=== PATIENT | male | born 1965 | race Caucasian/White ===

== ENCOUNTER 2019-02-07 19:01 | Inpatient (IN) | payer OTHER ==
[~2019-02-07] VITALS: Ht 180.3 cm; Wt 90.0 kg
[2019-02-07 21:41] LABS: BASOPHIL % 0.3 % (0-2); PLATELET COUNT 258 x10^3mcL (130-400); RED CELL DISTRIBUTION WIDTH 14.3 % (11.5-14.5)
[2019-02-07 21:43] LABS: CALCIUM 7.7 mg/dL (8.5-10.1); CARBON DIOXIDE 28.2 mmol/L (21-32); CHLORIDE SERUM 102 mmol/L (98-107); CREATININE SERUM 1.2 mg/dL (0.7-1.3); GFR1 > 60 mL/min; GLUCOSE SERUM 94 mg/dL (74-106); POTASSIUM SERUM 3.9 mmol/L (3.5-5.1); SODIUM SERUM 139 mmol/L (136-145)
[2019-02-07 21:48] LABS: ALKALINE PHOSPHATASE 91 U/L (46-116); ALT/SGPT 35 U/L (16-63); AST/SGOT 25 U/L (15-37); BILIRUBIN TOTAL 0.3 mg/dL (0.20-1.00); TOTAL PROTEIN, SERUM 7.8 g/dL (6.4-8.2)
[2019-02-07 21:49] LABS: ALBUMIN 3.3 g/dL (3.4-5.0)
[2019-02-07] MEDS ORDERED: ZESTRIL2.5 MG PO (23:04)
[2019-02-07] MEDS ORDERED: HUMALOG100 U/ML SC (23:04)
[2019-02-08 00:14] VITALS: BP 136/76
[2019-02-08 04:45] VITALS: BP 145/80
[2019-02-08 06:55] LABS: CALCIUM 7.3 mg/dL (8.5-10.1); CARBON DIOXIDE 29.7 mmol/L (21-32); CHLORIDE SERUM 105 mmol/L (98-107); GFR1 > 60 mL/min; GLUCOSE SERUM 83 mg/dL (74-106); MAGNESIUM 1.9 mg/dL (1.8-2.4); POTASSIUM SERUM 4.7 mmol/L (3.5-5.1); SODIUM SERUM 141 mmol/L (136-145)
[2019-02-08 07:14] VITALS: BP 120/66
[2019-02-08] MEDS ORDERED: ZITHROMAX1 GM/Packe PO (10:52)
[2019-02-08] MEDS ORDERED: ROBL PO (10:54)
[2019-02-08 11:09] LABS: BASOPHIL % 0.3 % (0-2); PLATELET COUNT 237 x10^3mcL (130-400); RED CELL DISTRIBUTION WIDTH 14.8 % (11.5-14.5)
[2019-02-08 12:00] VITALS: BP 138/74
[2019-02-08 12:09] VITALS: BP 120/66
== END 2019-02-08 16:33 | disposition home or self-care (01) | DRG 195 ==
LOC: ED 19:01 → DU 23:34
PROVIDERS: Emergency Medicine; Internal Medicine Pulmonary Disease; ADMIT Internal Medicine
DX: J18.9 Pneumonia, unspecified organism (principal); I10 Essential (primary) hypertension; E03.9 Hypothyroidism, unspecified; B34.9 Viral infection, unspecified; Z60.2 Problems related to living alone; E11.42 Type 2 diabetes mellitus with diabetic polyneuropathy; Z79.4 Long term (current) use of insulin; Z87.891 Personal history of nicotine dependence; Z90.89 Acquired absence of other organs
CPT/HCPCS: 82962; 83880; 87804; G0378; J0456; J0696; J7030; J7050; J7060

== ENCOUNTER 2020-03-11 14:13 | Inpatient (IN) | payer OTHER, SELFPAY ==
[~2020-03-11] VITALS: Ht 180.3 cm; Wt 88.9 kg
[~2020-03-11 14:13] MED LIST: HUMALOG100 U/ML SC; ROBL PO; ZESTRIL2.5 MG PO; ZITHROMAX1 GM/Packe PO
--- NOTE | 2020-03-11 14:31 | NUR ---
PT BIB GIRLFRIEND C/O COVID SYMPTOMS X2 WEEKS. PT TESTED +COVID 03/02/20. PT REPORTS CHILLS, BODY & MUSCLE ACHES, BLISS, FATIGUE, RUNNY NOSE, CONGESTION, SORE THROAT, COUGH W/ CLEAR SPUTUM, SOB, N/V/D. PT REPORTS VOMITING X1 PER DAY SINCE ONSET OF COVDI SYMPTOMS AND STS THAT HE HAD DIARRHEA X4DAYS FROM ONSET OF SYMPTOMS, BUT HAS NOT BEEN ABLE TO DEFACATE SINCE THEN. PT DENIES ANY CHANGE IN URINATION. PT STS BS 139 AT HOME AND REPORTS 10/10 BACK AND CHEST PAIN. PT REPORTS A "CHEST TIGHTNESS AND BURNING PAIN IN THE BACK AND CHEST". PT OBSERVED WHEEZING AND HAVING DIFFICULTY BREATHING STATING "THIS IS THE WORST SICKNESS I'VE EVER HAD". AAOX4, AWAITING MSE BY
--- NOTE | 2020-03-11 15:30 | NUR ---
PT NOTED WITH 02 SATURATION AT 91% ON RA. NOTIFIED CHARGE NEED FOR ROOM FOR PT.
--- NOTE | 2020-03-11 15:45 | NUR ---
PT GIRLFRIEND DAVON PAUL TO CONTACT. AT [phone]
--- NOTE | 2020-03-11 15:50 | NUR ---
PT NOTED IN ER [facility] BED 9.
--- NOTE | 2020-03-11 15:55 | NUR ---
FIRST CONTACT WITH PATIENT. PT C/O SOB AND COUGH SINCE BEING DIAGNOSED WITH COVID ON 03/02/20 PER PT. PT NOTED ON 4L VIA NC, SPO2@ 92%, INCREASED OXYGEN TO 6L VIA 6L NC. SPO2 NOW @ 95%. PT REPORTED HE WAS COLD, GAVE PT A BLANKET. PT ON FULL CM, SINUS TACHYCARDIA NOTED, WILL CONT TO MONITOR.
[2020-03-11 16:57] LABS: BASOPHIL % 0.1 % (0-2); PLATELET COUNT 295 x10^3mcL (130-400); RED CELL DISTRIBUTION WIDTH 14.1 % (11.5-14.5)
--- NOTE | 2020-03-11 16:57 | NUR ---
PT UNABLE TO GIVE URINE AT THIS TIME, URINAL LEFT AT THE BEDSIDE. MD AWARE. NO FURTHER ORDERS
[2020-03-11 17:08] LABS: CALCIUM 7.9 mg/dL (8.5-10.1); CARBON DIOXIDE 25.8 mmol/L (21-32); CHLORIDE SERUM 96 mmol/L (98-107); CREATININE SERUM 1.2 mg/dL (0.7-1.3); GFR1 > 60 mL/min; GLUCOSE SERUM 136 mg/dL (74-106); POTASSIUM SERUM 4.2 mmol/L (3.5-5.1); SODIUM SERUM 131 mmol/L (136-145)
[2020-03-11 17:12] LABS: ALBUMIN 3.1 g/dL (3.4-5.0); ALKALINE PHOSPHATASE 77 U/L (46-116); ALT/SGPT 60 U/L (16-63); AST/SGOT 60 U/L (15-37); BILIRUBIN TOTAL 0.5 mg/dL (0.20-1.00); C REACTIVE PROTEIN 11.6 mg/dL (<=0.9); LACTIC DEHYDROGENASE (LDH) 382 U/L (100-190); TOTAL PROTEIN, SERUM 7.6 g/dL (6.4-8.2)
--- NOTE | 2020-03-11 17:29 | NUR ---
PT NOTED LAYING SIDEWAYS IN ER [facility] WITH NC OFF SPO2 @88%, ENTERED ROOM, AND HAD PT SIT IN IN ER [facility] IN SEMI FOWLERS, PLACED NC BACK ON PT, SPO2 AT 95%. PT UNABLE TO URINATE. URINAL AT THE BEDSIDE. PT ON MONITOR. WILL CONT TO MONITOR. SAFETY PRECAUTIONS IN PLACE.
[2020-03-11] MEDS ORDERED: PRA10 PO (18:14)
--- NOTE | 2020-03-11 19:02 | NUR ---
REPORT GIVEN TO ELIAS COLLIER FOR CONTINUITY OF CARE
--- NOTE | 2020-03-11 19:47 | NUR ---
PATIENT ALERT AND ORIENTED X 4, REPORTS THAT HE HAD POSITIVE COVID 19 RESULT FROM LAST WEEK IN FEBRUARY, PATIENT REPORTS THAT HE IS FEELING BETTER WITH O2 AT 5LPM VIA NC, PLACED IN SIDE LYING POSITION, RESPIRATIONS EVEN AND UNLABORED, o2 SAT 98%, PATIENT REPORTS THAT HE WAS HOT AND IS NOW DIAPHORETIC. VSS, CONTINUES TO WAIT FOR ADMISSION ORDERS, WILL CONTINUE TO MONITOR.
--- NOTE | 2020-03-11 20:40 | NUR ---
ADMITTING MD IN WITH PATIENT, PATIENT GIVEN SANDWICH, RESPIRATIONS EVEN ADN UNLABORED, O2 SAT 96% WHILE EATING, SKIN WARM AND DRY. NO ACUTE DISTRESS NOTED.
[2020-03-11 21:36] LABS: T3 TOTAL 0.95 ng/mL
[2020-03-11 21:38] LABS: FREE T4 1.46 ng/dL (0.76-1.46); FREE THYROXINE INDEX 3.3 ug/dL (1.4-4.5); T4(THYROXINE) 8.9 ug/dL (4.7-13.3)
[2020-03-11 21:56] LABS: MAGNESIUM 2.2 mg/dL (1.8-2.4); PHOSPHOROUS 3.4 mg/dL (2.5-4.9)
--- NOTE | 2020-03-11 22:23 | NUR ---
PATIENT REPORTS THAT HE IS DROWSY AND WANTS TO SLEEP, RESPIRATIONS EVEN AND UNLABORED ON O2 AT 3LPLM VIA NC, O2 SAT 98%. vss, SR ON SCREEN MAKING TECHNICIAN WITH HR 79. CONTINUES TO WAIT FOR INPATIENT BED.
[2020-03-12 02:44] VITALS: BP 110/43
--- NOTE | 2020-03-12 05:31 | NUR ---
PATIENT RESTING QUIETLY, RESPIRATIONS EVEN AND UNLABORED, O2 DECREASED TO 2LPM VIA NC, O2 SAT 98%.
--- NOTE | 2020-03-12 06:48 | NUR ---
LAB STAFF REPORTS THAT NO URINE FOUND IN LAB, NO TESTING IN PROGRESS.
--- NOTE | 2020-03-12 07:21 | NUR ---
REPORT GIVEN TO AMIRA GIANG WHO WILL ASSUME CARE OF PATIENT.
--- NOTE | 2020-03-12 08:18 | NUR ---
POC BG 253
--- NOTE | 2020-03-12 08:19 | NUR ---
54 Y/O MALE PMH: DM, HTN, COVID+ ON 03/02/20 C/O SOB 11/11 GENERALIZED BACKPAIN/ACHING LIKE/CONSTANT/UNKNOWN PROVOKING/RELIEVING FACTORS. PT. IN SEMI FOWLERS, +DRY COUGH, DENIES N/V/F/C/BLISS/DIZZINESS +SOB, SPEAKING IN CLEAR FULL SENTENCES, RESPIRATIONS EVEN AND UNALBORED, SKIN COOL AND DRY, +RIZO, -AMU/TRIPODING NOTED, ON COVID PRECAUTIONS, REMAINS ON CONTINUOUS MONITOR, PENDING ADMIT.
--- NOTE | 2020-03-12 08:59 | NUR ---
PT. GIVEN BREAKFAST
--- NOTE | 2020-03-12 09:08 | NUR ---
CALLED PHARMACY FOR MEDICATIONS, PHARMACY WILL DELIVER.
[2020-03-12 12:55] LABS: UA SPECIFIC GRAVITY >=1.030 (1.005-1.035); microscopic required? YES; urine erythrocyte TRACE (NEGATIVE)
--- NOTE | 2020-03-12 12:56 | NUR ---
PT. GIVEN LUNCH, TOLERATING PO INTAKE WELL
[2020-03-12 14:13] LABS: AMPHETAMINE QUAL UR NONE DETECTED (See below)
--- NOTE | 2020-03-12 17:32 | NUR ---
PT. GIVEN DINNER
--- NOTE | 2020-03-12 19:31 | NUR ---
RECEIVED REPORT FROM RAHAT COLLIER. PT NOTED AWAKE IN [facility], NO ACUTE DISTRESS NOTED AND BREATHING EVEN AND UNLABORED. SAFETY MEASURES IN PLACE. PT DENIES ANY PAIN OR DISCOMFORT AT THIS TIME. CALL LIGHT WITHIN REACH. IV TO LEFT HAND INTACT AND PATENT. WILL CONTINUE TO MONITOR.
--- NOTE | 2020-03-12 20:22 | NUR ---
PT AWAKE IN GURNEY, NO ACUTE DISTRESS NOTED. BREATHING EVEN AND UNLABORED. PT A/O X4 AND VERBALLY RESPONSIVE, SPEAKING CLEAR AND FULL SENTENCES. SAFETY MEASURES IN PLACE. CALL LIGHT WITHIN REACH. WILL CONTINUE TO MONITOR.
--- NOTE | 2020-03-12 21:48 | NUR ---
PT RESTING IN GURNEY, NO ACUTE DISTRESS NOTED. BREATHING EVEN AND UNLABORED. CURTAIN OPEN AND PT VISIBLE FROM NURSES STATION. PT LAYING IN POSITION OF COMFORT. FULL CM AND O2 MONITOR IN PLACE. WILL CONTINUE TO MONITOR.
--- NOTE | 2020-03-12 22:34 | NUR ---
REPORT CALLED TO LEROY COLLIER
--- NOTE | 2020-03-12 22:55 | NUR ---
PT PLACED ON TRANSPORT CM. PT TRANSFERRED TO TELE FLOOR [facility]IA [place] WITH AMIRA CARMONA AND EMT DILMA. PT TRANSFERRED TO TELE BED WITH NO ACUTE DISTRESS NOTED. BREATHING EVEN AND UNLABORED. AMIRA DIGGS AT BEDSIDE TO ASSUME CARE
[2020-03-12 23:33] VITALS: BP 98/41
--- NOTE | 2020-03-12 23:46 | NUR ---
RECEIVED PT FROM ER, PT ADMIT FOR COVID 19, PNA, HYPOXIA. PT IS A/O X4, VERBAL RESPONSIVE. LUNG SOUND DIM YUDY BASE, C/O MILD SOB. PRODUCTIVE COUGH WITH WHITE SECRETION. PT IS ON 3L/MIN O2 VIA NC, PO2 94%, PT IS ON TELE 37, NSR, DENY ANY CHEST PAIN OR DISCOMFORT, BOWEL SOUND PRESENT ALL 4 QUADRANTS, NO DISTENTION, NO TENDER. PULSE PRESENT BOTH FEET, NO EDEMA, IV AT RIGHT HAND, NO LEAKING, NO INFITLRATION. ALL ADLS ASSIST, ALL NEED MET, CALL LIGHT IN REACH, WILL CONTINUE TO MONITOR.
--- NOTE | 2020-03-13 00:02 | NUR ---
SPOKE TO DR. YATES ABOUT CONVALESCENT PLASMA INFUSION FOR PT. PER DR. YATES, SHE WILL TALK TO PT AND SIGN ALL FORMS WHEN FREE.
[2020-03-13 05:45] VITALS: BP 131/50
--- NOTE | 2020-03-13 06:46 | NUR ---
PT IS RESTING IN BED AWAKE AND ALERT. PT IS AWARE ABOUT CONVALESCENT PLASMA AND CONSENT HAS BEEN OBTAINED. NO FURTHER CONCERNS AT THIS TIME. BREATHING IS EVEN AND UL ON 3L NC, NO SOB NOTED. NO C/O PAIN OR DISCOMFORT THROUGHOUT SHIFT. NO SIGNIFICANT CHANGES AT THIS TIME. REMAINS IN STABLE CONDITION. BED IN LOWEST POSITION. CALL LIGHT IS W/IN REACH. WILL ENDORSE TO DAY SHIFT NURSE.
[2020-03-13 08:00] VITALS: BP 121/63
[2020-03-13 08:15] LABS: BASOPHIL % 0.1 % (0-2); PLATELET COUNT 397 x10^3mcL (130-400); RED CELL DISTRIBUTION WIDTH 13.1 % (11.5-14.5)
[2020-03-13 08:20] LABS: C REACTIVE PROTEIN 8.1 mg/dL (<=0.9); CALCIUM 8.2 mg/dL (8.5-10.1); CARBON DIOXIDE 24.9 mmol/L (21-32); CHLORIDE SERUM 102 mmol/L (98-107); GFR1 > 60 mL/min; GLUCOSE SERUM 142 mg/dL (74-106); MAGNESIUM 2.4 mg/dL (1.8-2.4); PHOSPHOROUS 2.5 mg/dL (2.5-4.9); POTASSIUM SERUM 4.1 mmol/L (3.5-5.1); SODIUM SERUM 136 mmol/L (136-145)
[2020-03-13 12:04] VITALS: BP 94/53
--- NOTE | 2020-03-13 14:23 | NUR ---
1. Continue with CCHO diet 2. Follow up with PO intake and assess needs for ONS
--- NOTE | 2020-03-13 14:23 | NUR ---
Initial Nutrition Assessment: [address] 54M Nursing trigger: appears underweight/malnourished, N/V/D > 3 days, unintentional weight loss > 10 lbs Dx: COVID-19, PNA, Hypoxia PMHx: DMT2, HTN PSHx: none noted Labs: (03/13) H/H 11.3/34L, BUN 31H, BG 142H, POC BG 152H, Ca 8.2L, CRP 8.1H, (03/11) A1C 8.1H, Ferritin 495.7H, AST 60H, albumin 3.1L Meds: Lantus, Zestril, Mucinex, Lipitor, Colace, Lovenox, Decadron, Humulin, [place] Diet: CCHO PO intake since admission: No entries yet Ht: 180.34cm/71in Wt: 88.904kg/196lbs BMI: 27.3 Bed scale: not accessible IBW: 78.18kg %IBW: 113.71% UBW: not assessible Age: 54 Food Allergies: not assessible Edema: none noted Last BM: 03/08 Skin: skin intact Price: 23 Per H and P (03/13), This is a 54-year-old M with PMH of DM T2, HTN presented to the ED with cough, weakness, body aches, headache, SOB for 9 days. He tested positive for Covid on Mar 02, isolated himself at home, had all those symptoms listed but his SOB was worse today, which prompted him to come to the hospital. He is also having some burning in his chest/stomach. He denies any fever, chills, chest pain or abdominal pain, he had diarrhea couple days ago, which resolved now. Also he denies any N/V, contact with Covid positive patients, urinary issues, Hx of Asthma and COPD. Patient had DM T2 and HTN for years and complaint to his meds. He has PCP and f/up regularly. He is ambulatory at the baseline and no home O2 use. Pt was admitted with dx: acute respiratory failure 2/2 COVID PNA, Hyponatremia, Hypocalcemia, T2DM, Hypercoagulable state, mild PCM, DVT RD Note (03/13/2020) Per progress note (03/13), pt is pending convalescent plasma transfusion, pending Remdesivir, currently on 3L via n/c. RD tried contacting via pt's bedside phone, and pt's primary RN picked up. Per RN, pt was complaining about not getting any rest last night and would not like to speak on the phone now. Problem with: N/V/D/C: constipation noted, pt currently Colace Problems with: Chewing: Swallowing: none noted Current appetite: RD was not able to assess due to no flowsheet entry Recent wt change: not assessible %wt change: not assessible Height: not assessible Vitamin/Supplement use: none reported in H and P (03/12) Special diet at home: regular diet as noted in admission system assessment. Physical activity: not assessible Nutrition education given (specify specific nutrition education and handout given): Written education "Carbohydrate Counting for People with Diabetes" and "Diabetes Label Reading Tips" from [facility] were left to pt via pt's RN. Food-drug interactions? Education given? n/a Estimated Nutritional Needs Based on ideal body weight (78kg) Energy: 3801-2496 kcal/day (30-35 kcal/kg for COVID positive) Protein: 93-117 g/day (1.2-1.5 g/kg for COVID positive) Fluid: 1557-1742 mL/day (1 mL/kcal) Nutrition Diagnosis: 1. Increased energy and protein needs r/t viral infection a/e/b pt has COVID. 2. Impaired nutrition utilization r/t endocrine dysfunction a/e/b pt PMHx of DM, elevated A1C = 7.3 on 03/11, and elevated BG 142 on 03/13. Intervention 1. Continue with [facility] diet 2. Follow up with PO intake and assess needs for ONS Monitor/Evaluate Goal: PO intake at least 75% of estimated needs Monitor: PO intake, Labs, GI function F/U in 2-3 days as high risk 03/15-
[2020-03-13 16:12] VITALS: BP 118/69
--- NOTE | 2020-03-13 19:28 | NUR ---
SPOKE TO LAWSON FROM BLOOD BANK REGARDING STATUS UPDATE OF CONVALESCENT PLASMA. PER LAWSON, DELIVERY OF CONVALESCENT PLASMA IS STILL PENDING AND BLOOD BANK WILL NOTIFY NURSE WHEN READY.
--- NOTE | 2020-03-13 19:50 | NUR ---
RECEIVED PT FROM DAY SHIFT NURSE, PT IS RESTING IN BED AWAKE AND ALERT A&OX4. TELE 37, NSR. NO C/O CP, DIZZINESS, BLISS, N/V OR PALPITATIONS. PALPABLE PULSES, NO EDEMA NOTED. BREATHING IS EVEN AND UL ON 3L NC, LUNG SOUNDS DIMINISHED BILATERAL BASES. NO SOB OR ACUTE RESPIRATORY DISTRESS NOTED. BOWEL SOUNDS ACTIVE X4, ABD IS SOFT AND ROUND. GENERALIZED WEAKNESS NOTED, AMBULATORY AT BASELINE. SKIN IS INTACT. IV TO RH, CDI AND PATENT, FLUSHING WELL. NO ERYTHEMA NOTED. NO C/O PAIN OR DISCOMFORT AT THIS TIME. BED IN LOWEST POSITION. CALL LIGHT IS W/IN REACH. WILL CONTINUE TO MONITOR.
[2020-03-13 21:41] VITALS: BP 113/54
--- NOTE | 2020-03-13 22:05 | NUR ---
STARTED CONVALESCENT PLASMA INFUSION AT 60ML/HR. VSS PRE-INFUSION: BP 107/61, HR 89, RR 17, TEMP 97.7, O2 92%. VERIFIED W/ MARTHA COLLIER. WILL CONTINUE TO MONITOR.
--- NOTE | 2020-03-13 22:20 | NUR ---
INCREASED CONVALESCENT PLASMA TO 100ML/HR. NO ADVERSE REACTIONS NOTED, PT IS TOLERATING INFUSION WELL. WILL CONTINUE TO MONITOR.
--- NOTE | 2020-03-14 00:27 | NUR ---
CONVALESCENT PLASMA INFUSION COMPLETE. NO ADVERSE EFFECTS NOTED THROUGHOUT INFUSION. NO C/O PAIN OR DISCOMFORT. VSS POST INFUSION: 106/69, HR 71, RR 15, TEMP 98.0, O2 94%. PT TOLERATED TX WELL AND IS RESTING IN BED ASLEEP. BED IN LOWEST POSITION. CALL LIGHT IS W/IN REACH. WILL CONTINUE TO MONITOR.
[2020-03-14 06:12] VITALS: BP 124/64
--- NOTE | 2020-03-14 06:42 | NUR ---
PT IS RESTING IN BED ASLEEP. VSS. REMAINS IN STABLE CONDITION. BREATHING IS EVEN AND UL ON 3L NC, NO SOB NOTED THROUGHOUT SHIFT. NO SIGNIFICANT CHANGES AT THIS TIME. NO C/O PAIN OR DISCOMFORT THROUGHOUT SHIFT. BED IN LOWEST POSITION. CALL LIGHT IS W/IN REACH. WILL ENDORSE TO DAY SHIFT NURSE.
--- NOTE | 2020-03-14 07:10 | NUR ---
PT IS AAOX4, TEL [address] READING NSR. RESP EVEN, SHALLOW. LUNG SOUNDS DIMINISHED BILATARALLY. ON O2 N/C AT 3LPM. NO COUGH NOTED AT THIS TIME. IV CATH TO RH FLUSHED AND PATENT. NO SS OF INFECTION OR INFILTRATION. DENIES PAIN. CALL LIGHT WITHIN REACH.
[2020-03-14 07:58] VITALS: BP 120/73
[2020-03-14 08:37] LABS: C REACTIVE PROTEIN 10.3 mg/dL (<=0.9); CALCIUM 8.3 mg/dL (8.5-10.1); CARBON DIOXIDE 27.5 mmol/L (21-32); CHLORIDE SERUM 103 mmol/L (98-107); CREATININE SERUM 0.9 mg/dL (0.7-1.3); GFR1 > 60 mL/min; GLUCOSE SERUM 145 mg/dL (74-106); MAGNESIUM 2.7 mg/dL (1.8-2.4); PHOSPHOROUS 3.7 mg/dL (2.5-4.9); POTASSIUM SERUM 4.3 mmol/L (3.5-5.1); SODIUM SERUM 138 mmol/L (136-145)
[2020-03-14 08:47] LABS: BILIRUBIN DIRECT 0.16 mg/dL (0.0-0.2); BILIRUBIN TOTAL 0.35 mg/dL (0.20-1.00); TOTAL PROTEIN, SERUM 7.1 g/dL (6.4-8.2)
[2020-03-14 08:48] LABS: ALBUMIN 2.5 g/dL (3.4-5.0)
--- NOTE | 2020-03-14 09:17 | NUR ---
PT SITTING IT BED EATING. O2 N/C AT 3LPM IN PLACE, PT HAS SOB WHEN TALKING. PT EDUCATED TO KEEP N/C ON AND USE BEDSIDE COMMODE AND URINAL. DO NO AMBULATE TO BATHROOM WITHOUT WEARING OXYGEN. PT VERBALIZED UNDERSTANDING. DENIES PAIN. SCHEDULED MEDS GIVEN AND TOLERATED WELL. LOVENOX XQ TO LLA. SITE WNL. B/P 120/73. CALL LIGHT WITHIN REACH.
[2020-03-14 11:56] VITALS: BP 110/54
--- NOTE | 2020-03-14 12:06 | NUR ---
PT ASSISTED TO BATHROOM AND BACK TO BED. PT HAD SOB WITH EXERTION. 02 N/C AT 2LPM IN PLACE. BLOOD SUGAR 158, 3 UNITS REG INSULIN SQ GIVEN TO LLA. SITE WNL. DENIES PAIN. CALL LIGHT WITHIN REACH.
[2020-03-14] MEDS ORDERED: ELIQUIS2.5 MG PO (12:29)
[2020-03-14] MEDS ORDERED: DECADRON6 MG PO (12:29)
--- NOTE | 2020-03-14 14:21 | NUR ---
SPOKE TO ARMOND IN CASE MANAGEMENT. HOME O2 ORDER HAS BEEN FAXED AND WAITING AUTHORIZATION. ARMOND STATED SHE WILL CALL WITH UPDATE WHEN O2 WILL BE DELIVERED TO PT'S HOME.
[2020-03-14 15:49] LABS: BASOPHIL % 0.4 % (0.2-1.5)
[2020-03-14 16:02] LABS: PLATELET COUNT 506 x10^3mcL (152-348)
[2020-03-14 16:24] VITALS: BP 95/42
--- NOTE | 2020-03-14 17:17 | NUR ---
REMDESIVIR IVPB SECOND DOSE OUT OF 5 DOSES GIVEN. BLOOD SUGAR 243 3 UNITS REG INSULIN SQ GIVEN TO ALMA. SITE WNL. DENIES PAIN. PT EDUCATED OXYGEN WILL BE DELIVERED TO HOSPITAL AND ONCE IT ARRIVES THAT NURSE WILL CALL THE PT'S SIGNIFICANT OTHER SO HE CAN BE PICKED UP. PT AGREED WITH POC.
--- NOTE | 2020-03-14 18:49 | NUR ---
DISCHARGE INSTRUCTION REVIEWED. ALL QUESTIONS AND CONCERNS ADDRESSED. ALL FORMS SIGNED AND PLACED IN CHART. PT EDUCATED THAT THE PT'S PRESCRIPTIONS HAVE BEEN SENT TO PT'S INDICATED PHARMACY AND THAT PT'S OXYGEN WILL BE DELIVERED TO HOSPITAL BETWEEN 6-7:00PM. ONCE OXYGEN IS DELIVERED THE PT'S SIGNIFICANT OTHER CAN PICK PT UP AND OXYGEN WILL GO HIM WITH HIM. DAVON HAS BEED CALLED AND UPDATED ON OXYGEN AND DISCHARGE. PT VERBALIZED UNDERSTANDING. PT IS ON 02 N/C AT 3LPM. RESP EVEN AND UNLABORED. NO DISTRESS NOTED. DENIES PAIN. TELE [address] READING NSR. CALL LIGHT WITHIN REACH. BED IN LOWEST POSITION. WILL ENDORSE ALL CARE TO NUTRITIONAL YEAST SUPERVISOR RN.
--- NOTE | 2020-03-14 20:28 | NUR ---
PT RECIEVED AAO REG RESP NOS ONPT ON 2L N/C SAT 95%,PTWILL BE GOING HOME WAITING FOR OXYGEN TANK TO BE DELIVERED,ABDO IS SOFT WITH ACTIVEBOWEL SOUNDS, PT ON TELE MONITOR AND IN NSR NO ECTOPY OR CHEST PAIN AT THIS TIME,CALL LIGHT EASY REACHED AND WILL CONTINUE TO MONITOR.
[2020-03-14 21:03] VITALS: BP 112/56
--- NOTE | 2020-03-14 23:46 | NUR ---
OXYGEN TANK HAS NOT BEING DELIVER YET,WILL CONTINUE TO MONITOR.
[2020-03-15 05:40] VITALS: BP 151/85
--- NOTE | 2020-03-15 06:37 | NUR ---
PT HAD A RESTING NIGHT AND NO CHANGE AT THIS TIME AND WILL CONTINIE TO MONITOR.
--- NOTE | 2020-03-15 07:15 | NUR ---
PT IS AAOX4, TELE [address] READING NSR. RESP EVEN, SHALLOW. LUNG SOUNDS DIMINISHED BILATERAL LOWER BASES. ON N/C AT 3LPM. IV CATH TO RH FLUSHED AND PATENT. CDI. S/L. NO S/S OF INFECTION OR INFILTRATION NOTED. DENIES PAIN. CALL LIGHT WITHIN REACH. BED IN LOWEST POSITION.
[2020-03-15 08:01] VITALS: BP 105/64
[2020-03-15 08:21] LABS: BILIRUBIN DIRECT 0.17 mg/dL (0.0-0.2); BILIRUBIN TOTAL 0.3 mg/dL (0.20-1.00); TOTAL PROTEIN, SERUM 6.6 g/dL (6.4-8.2)
[2020-03-15 08:30] LABS: ALBUMIN 2.3 g/dL (3.4-5.0)
--- NOTE | 2020-03-15 08:45 | NUR ---
PT SITTING UP AT BEDSIDE. TOLERATING ACTIVITY WELL. NO RESP DISTRESS NOTED. SCHEDULED MEDS GIVEN AND TOLERATED WELL. B/P 105/64. DENIES PAIN. CALL LIGHT WITHIN REACH.
--- NOTE | 2020-03-15 09:48 | NUR ---
SPOKE TO VERONICA IN CASE MANAGEMENT, SHE STATED SHE WILL FOLLOW UP ON WHY THE OXYGEN FOR THE PT HAS NOT BEEN DELIVERED TO THE HOSPITAL YET. DAVON, THE PT'S MADE AWARE.
--- NOTE | 2020-03-15 11:44 | NUR ---
VERONICA, RECEPTIONIST SCHEDULER STATED SHE CALLED THE PT'S INSURANCE CO TO HAVE THEM ORDER OXYGEN FROM ANOTHER VENDOR. VERONICA STATED SHE WILL UPDATE THE PT WHEN SHE HAS IT CONFIRMED. PT MADE AWARE.
--- NOTE | 2020-03-15 12:10 | NUR ---
PT MADE AWARE THAT VERONICA FIRST BREAKER FEEDER STATED THE PT OXYGEN WILL BE DELIVERED BY 5-6:00PM TODAY. PT MADE AWARE.
[2020-03-15 12:23] VITALS: BP 99/54
[2020-03-15 16:48] VITALS: BP 94/51
--- NOTE | 2020-03-15 18:08 | NUR ---
SPOKE TO PAMELLA AT [facility] AND STATED THAT THE PT'S OXYGEN HAS NOT BEEN DELIVERED YET. PAMELLA STATED SHE WILL PAGE THE [facility] AND HAVE HER FOLLOW UP. SHE STATED THE [facility] WILL CALL BACK AND SPEAK TO THE PT'S NURSE. PT MADE AWARE.
[2020-03-15 18:57] VITALS: BP 109/58
--- NOTE | 2020-03-15 18:58 | NUR ---
PT B/P NOW 109/72. SPOKE TO DR. JOEL WHO STATED PT'S LINSINOPRIL AND BEEN D/C'D. PT SHOULD NOT TAKE LINSINOPRIL AT HOME. DR. JOEL STATED HE WILL UPDATE THE PT'S DISCHARGE ORDER. [facility] SPOKE WITH PT'S SIGNIFICANT OTHER, THE OXYGEN WILL BE DROPPED OFF AT THE HOSPITAL AT ABOUT 9PM. SOPHIA COLLIER MADE AWARE. TELE [address] READING NSR. IV CATH TO RH S/L. FLUSHED AND PATENT. NO S/S OF INFECTION NOTED. DENIES PAIN. CALL LIGHT WITHIN REACH. WILL ENDORSE ALL CARE TO CUSTOMER CARE TEAM COACH RN.
[2020-03-15 19:26] VITALS: BP 109/58
--- NOTE | 2020-03-15 20:26 | NUR ---
PLAN OF CARE REVIEWED DISCHARE HOME TONIGHT PT AWARE WILL CONTINUE TO MONITOR AND ASSESS, WILL CARRY OUT DISCHARGE ORDERED
== END 2020-03-15 21:17 | disposition home or self-care (01) | DRG 177 ==
LOC: ED 14:13 → DU 19:52
PROVIDERS: Specialist; ADMIT Family Medicine; ATTEND Family Medicine
PROC: XW033E5 Introduction of Remdesivir Anti-infective into Peripheral Vein, Percutaneous Approach, New Technology Group 5 (ICD-10-PCS; principal; 2020-03-13)
PROC: XW13325 Transfusion of Convalescent Plasma (Nonautologous) into Peripheral Vein, Percutaneous Approach, New Technology Group 5 (ICD-10-PCS; 2020-03-13)
DX: U07.1 COVID-19 (principal); J12.89 Other viral pneumonia; J96.01 Acute respiratory failure with hypoxia; E44.1 Mild protein-calorie malnutrition; E87.1 Hypo-osmolality and hyponatremia; D68.59 Other primary thrombophilia; I10 Essential (primary) hypertension; E11.9 Type 2 diabetes mellitus without complications; Z79.4 Long term (current) use of insulin; E83.51 Hypocalcemia
CPT/HCPCS: 36600; 82962; 83880; 84439; 85378; 87804; G0378; J1100; J1650; J1815; J1885; J7030; J7050; U0003